=== PATIENT | female | born 1980 | race Caucasian/White ===

== ENCOUNTER 2017-08-03 01:58 | Emergency (ER) | payer SELFPAY ==
[~2017-08-03] VITALS: Ht 165.1 cm; Wt 61.2 kg
[~2017-08-03 01:58] MED LIST: Depo-Provera INJ; TYLENOL EXTRA500 MG PO; VICODIN ES 7.51 EACH PO
== END 2017-08-03 02:36 | disposition home or self-care (01) ==
LOC: FSED 01:58
DX: H60.502 Unspecified acute noninfective otitis externa, left ear (principal); H60.332 Swimmer's ear, left ear; I10 Essential (primary) hypertension
CPT/HCPCS: 99283